=== PATIENT | female | born 1990 | race Two or more races ===

== ENCOUNTER 2021-03-10 14:35 | Outpatient (CLI) | payer OTHER | END 2021-03-10 15:00 | disposition home or self-care (01) | LOC: LAB 14:35 | PROVIDERS: ATTEND Emergency Medicine Pediatric Emergency Medicine | DX: Z20.828 Contact with and (suspected) exposure to other viral communicable diseases (principal) ==

== ENCOUNTER 2024-10-25 12:27 | Outpatient (CLI) | payer OTHER ==
[~2024-10-25 12:27] MED LIST: BUTALBIT-ACETA1 EACH PO; NEURONTIN300 MG PO
== END 2024-10-25 12:32 | disposition home or self-care (01) ==
LOC: MAMO-SONO 12:27
DX: D48.61 Neoplasm of uncertain behavior of right breast (principal); D48.62 Neoplasm of uncertain behavior of left breast; I70.0 Atherosclerosis of aorta; J45.51 Severe persistent asthma with (acute) exacerbation

== ENCOUNTER 2025-01-18 09:05 | Outpatient (CLI) | payer OTHER ==
[2025-01-18 09:41] LABS: URINE APPEARANCE Clear; URINE BILIRRUBIN Negative (NEGATIVE); URINE BLOOD Negative; URINE COLOR Yellow; URINE GLUCOSE Negative (NEGATIVE); URINE KETONE Negative (NEGATIVE); URINE LEUKOCYTE Negative; URINE NITRATE Negative; URINE PROTEIN Negative (NEGATIVE); URINE UROBILINOGEN 0.2 E.U./dl
[2025-01-18 09:42] LABS: URINE BACTERIA 687.7 uL (0.0-1933); URINE EPITHELIAL CELLS 9.1 uL (0.0-38.8); URINE RBC 20.6 uL (0.0-20.8)
[2025-01-18 09:47] LABS: URINE CAST 0.29 uL (0.0-1.40)
[2025-01-18 09:53] LABS: ob NEGATIVE (NEGATIVE)
[2025-01-18 11:02] LABS: CHOL HDL RATIO 3.1 (0-5.0)
[2025-01-18 11:08] LABS: ALBUMIN 3.7 gm/dL (3.4-5.0); BILIRUBIN TOTAL 0.29 mg/dL (0.3-1.2); CALCIUM 8.8 mg/dL (8.5-10.1); CREATININE SERUM 0.5 mg/dL (0.55-1.02); GFR 140.4; GLOBULINA 3.7 G/DL (2.4-3.5); POTASSIUM 4.69 mEq/L (3.5-5.1); TOTAL PROTEIN 7.4 gm/dL (6.4-8.2); TSH 1.97 uIU/mL (0.358-3.74)
[2025-01-18 13:16] LABS: BASO % 1.4 % (0.1-1.2); EOS # 0.23 (0.04-0.54); EOS % 4.5 % (0.7-7.0); HEMATOCRIT 27.9 % (34.1-44.9); LYMPH # 1.43 (1.18-3.74); LYMPH % 27.8 % (19.3-53.1); MEAN CORPUSCULAR HEMOGLOBIN 18.7 pg (25.6-32.2); MONO # 0.41 (0.24-0.82); NEUT % 58.1 % (34.0-71.1); PLATELET COUNT 269 K/uL (163-369); RED BLOOD COUNT 4.33 M/uL (3.93-5.22); RED CELL DISTRIBUTION WIDTH 19.1 % (11.6-14.4)
[2025-01-18 13:21] LABS: HEMOGLOBIN 8.1 g/dL (11.2-15.7)
== END 2025-01-18 09:07 | disposition home or self-care (01) ==
LOC: LAB 09:05
DX: D50.9 Iron deficiency anemia, unspecified (principal); I10 Essential (primary) hypertension; I11.9 Hypertensive heart disease without heart failure; E78.2 Mixed hyperlipidemia; Z12.11 Encounter for screening for malignant neoplasm of colon; E03.8 Other specified hypothyroidism; N39.0 Urinary tract infection, site not specified; E55.9 Vitamin D deficiency, unspecified; Z13.1 Encounter for screening for diabetes mellitus; R73.01 Impaired fasting glucose

== ENCOUNTER 2025-04-26 08:29 | Outpatient (CLI) | payer OTHER ==
[2025-04-26 09:15] LABS: BASO % 1.1 % (0.1-1.2); EOS # 0.19 (0.04-0.54); EOS % 4.3 % (0.7-7.0); LYMPH # 1.24 (1.18-3.74); LYMPH % 28.2 % (19.3-53.1); MEAN PLATELET VOLUME 9.30 fl (9.4-12.4); MONO # 0.36 (0.24-0.82); MONO % 8.2 % (4.7-12.5); NEUT # 2.55 (1.56-6.13); NEUT % 58.2 % (34.0-71.1); RED CELL DISTRIBUTION WIDTH 18.5 % (11.6-14.4)
[2025-04-27] MEDS ORDERED: [UNRECOGNIZED DRUG - OTHER] (14:42)
== END 2025-04-26 08:30 | disposition home or self-care (01) ==
LOC: LAB 08:29
PROVIDERS: ATTEND General Practice
DX: D50.9 Iron deficiency anemia, unspecified (principal); D52.0 Dietary folate deficiency anemia

== ENCOUNTER 2025-04-26 10:32 | Inpatient (IN) | payer OTHER ==
[~2025-04-26] VITALS: Ht 190.5 cm; Wt 77.1 kg
--- NOTE | 2025-04-26 11:05 | NUR ---
PACIENTE ALERTA Y ORIENTADA X3 QUIEN REFIERE QUE SE REALIZO UN CBC EL CAIO DE HOY Y EL MISMO PRESENTA HGB EN 7.3MG/DL. SE MONITOREAN S/V Y SE UBICA PACIENTE.
--- NOTE | 2025-04-26 12:48 | NUR ---
SE EDUCA PACIENTE SOBRE EL TX MEDICO Y ESTA REFIERE ENTENDER. SE CANALIZA Y WELDER APPRENTICE [facility] ADMINISTRA MEDICAMENTOS SHANTELLE ORDEN MEDICA. SE GRETTA MUESTRAS DE LABORATORIOS Y SE ENVIAN. PENDIENTE A PLACA
[2025-04-26 13:05] LABS: BASO % 1.1 % (0.1-1.2); EOS # 0.21 (0.04-0.54); EOS % 3.4 % (0.7-7.0); LYMPH # 1.67 (1.18-3.74); LYMPH % 27.4 % (19.3-53.1); MEAN PLATELET VOLUME 9.70 fl (9.4-12.4); MONO # 0.48 (0.24-0.82); MONO % 7.9 % (4.7-12.5); NEUT # 3.65 (1.56-6.13); NEUT % 60.0 % (34.0-71.1); RED CELL DISTRIBUTION WIDTH 18.5 % (11.6-14.4)
[2025-04-26 13:27] LABS: INR 1.06
[2025-04-26 13:45] LABS: ALT/SGPT 35.0 U/L (12-78); AST/SGOT 22.0 U/L (15-37); BILIRUBIN TOTAL 0.22 mg/dL (0.3-1.2); BUN CREA RATIO 23.0 (7.0-25.0); CREATININE SERUM 0.47 mg/dL (0.55-1.02); GFR 149.94; GLOBULINA 3.6 G/DL (2.4-3.5); GLUCOSE FASTING 90.0 mg/dL (65-100); OSMOLALITY SERUM 280.0 MOSM/KG (275-295)
[2025-04-26 14:08] LABS: URINE APPEARANCE Clear; URINE BILIRRUBIN Negative (NEGATIVE); URINE BLOOD Negative; URINE COLOR Yellow; URINE GLUCOSE Negative (NEGATIVE); URINE KETONE Negative (NEGATIVE); URINE LEUKOCYTE Negative; URINE NITRATE Negative; URINE PROTEIN Negative (NEGATIVE); URINE UROBILINOGEN 0.2 E.U./dl
[2025-04-26 14:09] LABS: URINE BACTERIA 1430.4 uL (0.0-1933); URINE EPITHELIAL CELLS 44.8 uL (0.0-38.8); URINE RBC 10.9 uL (0.0-20.8); URINE WBC 4.3 uL (0.0-23.2)
[2025-04-26 14:10] LABS: URINE CAST 0.14 uL (0.0-1.40)
[2025-04-26] MEDS ORDERED: 0.9 % SODIUM CHLORIDE 1,000 ML IV SCH (15:45)
[2025-04-26] MEDS ORDERED: ACETAMINOPHEN 325 MG TABLET PO PRN (15:45)
[2025-04-26] MEDS ORDERED: SOD FERRIC GLUC COMPLX/SUCROSE 125 MG in 0.9 % SODIUM CHLORIDE 100 ML IV SCH (17:00)
[2025-04-26 17:53] LABS: BILIRUBIN TOTAL 0.20 mg/dL (0.3-1.2); BILIRUBIN,CONJUGATED < 0.10 mg/dL (0.0-0.2); LDH 218 U/L (84-246); TSH 1.510 uIU/mL (0.358-3.74)
[2025-04-26 22:39] VITALS: BP 100/65; O2SAT 100
[2025-04-27 02:48] VITALS: BP 99/64; O2SAT 99
[2025-04-27 08:50] VITALS: BP 137/69
[2025-04-27 09:55] LABS: FOLIC ACID 14.08 ng/ml (4.78-20)
[2025-04-27] MEDS ORDERED: ACETAMINOPHEN 500 MG GEL..CAP PO PRN (10:00)
[2025-04-27] MEDS ORDERED: [UNRECOGNIZED DRUG - OTHER] (14:42)
[2025-04-27 20:31] VITALS: BP 110/70; O2SAT 100
[2025-04-27 20:54] LABS: BASO % 1.5 % (0.1-1.2); EOS # 0.38 (0.04-0.54); EOS % 6.4 % (0.7-7.0); LYMPH # 2.24 (1.18-3.74); LYMPH % 37.6 % (19.3-53.1); MEAN PLATELET VOLUME 9.80 fl (9.4-12.4); MONO # 0.45 (0.24-0.82); MONO % 7.6 % (4.7-12.5); NEUT # 2.79 (1.56-6.13); NEUT % 46.7 % (34.0-71.1); RED CELL DISTRIBUTION WIDTH 21.2 % (11.6-14.4)
[2025-04-27 21:15] LABS: COL EPI 118 SECONDS (82-175)
[2025-04-27 23:16] LABS: ob NEGATIVE (NEGATIVE)
[2025-04-28 02:02] VITALS: BP 98/54; O2SAT 98
[2025-04-28 09:23] VITALS: BP 103/69
[2025-04-28 12:00] VITALS: O2SAT 92
[2025-04-28] MEDS ORDERED: ABANEU-SL TABL1 EACH SL (13:19)
[2025-04-28] MEDS ORDERED: PEPCID AC20 MG PO (13:19)
[2025-04-28] MEDS ORDERED: INTEGRA F CAPS1 EAC1 PO (13:19)
== END 2025-04-28 13:50 | disposition home or self-care (01) | DRG 812 ==
LOC: ER 10:33 → SEC-K 16:03 → MEDI 16:03
PROVIDERS: General Practice; Preventive Medicine Public Health & General Preventive Medicine; Student in an Organized Health Care Education/Training Program; ADMIT Internal Medicine; ATTEND Internal Medicine
PROC: 4A12X4Z Monitoring of Cardiac Electrical Activity, External Approach (ICD-10-PCS; principal; 2025-04-26)
PROC: 30233N1 Transfusion of Nonautologous Red Blood Cells into Peripheral Vein, Percutaneous Approach (ICD-10-PCS; 2025-04-27)
PROC: BW4GZZZ Ultrasonography of Pelvic Region (ICD-10-PCS; 2025-04-27)
DX: D50.9 Iron deficiency anemia, unspecified (principal); N93.9 Abnormal uterine and vaginal bleeding, unspecified

== ENCOUNTER 2025-05-25 14:45 | Outpatient (CLI) | payer OTHER ==
[~2025-05-25 14:45] MED LIST changes: +ABANEU-SL TABL1 EACH SL; +INTEGRA F CAPS1 EAC1 PO; +PEPCID AC20 MG PO; +[UNRECOGNIZED DRUG - OTHER]
== END 2025-05-25 14:55 | disposition home or self-care (01) ==
LOC: PPH VACUNA 14:45
PROVIDERS: ATTEND Emergency Medicine Pediatric Emergency Medicine
DX: Z23 Encounter for immunization (principal)

== ENCOUNTER 2025-06-09 09:22 | Outpatient (CLI) | payer OTHER ==
[2025-06-09 12:11] LABS: URINE APPEARANCE Clear; URINE BILIRRUBIN Negative (NEGATIVE); URINE BLOOD Negative; URINE COLOR Yellow; URINE GLUCOSE Negative (NEGATIVE); URINE KETONE Negative (NEGATIVE); URINE LEUKOCYTE Trace; URINE NITRATE Negative; URINE PROTEIN Negative (NEGATIVE); URINE UROBILINOGEN 0.2 E.U./dl
[2025-06-09 12:14] LABS: URINE BACTERIA 681.5 uL (0.0-1933); URINE EPITHELIAL CELLS 16.1 uL (0.0-38.8); URINE RBC 9.8 uL (0.0-20.8); URINE WBC 2.7 uL (0.0-23.2)
[2025-06-09 12:26] LABS: URINE CAST 0.00 uL (0.0-1.40)
[2025-06-09 12:45] LABS: BASO % 1.2 % (0.1-1.2); EOS # 0.26 (0.04-0.54); EOS % 5.2 % (0.7-7.0); LYMPH # 1.28 (1.18-3.74); LYMPH % 25.8 % (19.3-53.1); MEAN PLATELET VOLUME 10.20 fl (9.4-12.4); MONO # 0.46 (0.24-0.82); MONO % 9.3 % (4.7-12.5); NEUT # 2.89 (1.56-6.13); NEUT % 58.3 % (34.0-71.1)
[2025-06-09 12:46] LABS: RED CELL DISTRIBUTION WIDTH 25.3 % (11.6-14.4)
[2025-06-11 09:04] LABS: ALT/SGPT 52 U/L (12-78); AST/SGOT 21 U/L (15-37); BILIRUBIN TOTAL 0.19 mg/dL (0.3-1.2); BUN CREA RATIO 19 (7.0-25.0); CHOL HDL RATIO 3.7 (0-5.0); CREATININE SERUM 0.53 mg/dL (0.55-1.02); GFR 130.53; GLOBULINA 3.5 G/DL (2.4-3.5); GLUCOSE FASTING 75 mg/dL (65-100); HDL 50 mg/dl (40-60); LDL 114 mg/dl (0-130); OSMOLALITY SERUM 277 MOSM/KG (275-295); TSH 1.150 uIU/mL (0.358-3.74); VLDL 19 (0-39)
[2025-06-11 09:26] LABS: HCG QUANTITATIVE < 1 mUI/mL (1-3); T4 FREE 0.92 NG/ML (0.76-1.46)
[2025-06-12 08:07] LABS: hav igm Negative (Negative); hep b c Negative (Negative); hep b s ag Negative (Negative)
[2025-06-12 10:10] LABS: CA 125 19.3 U/mL (0.0-38.1); ESTRADIOL SERUM 51.1 pg/mL (.); PROGESTERONA 2.6 ng/mL (.); PROLACTIN 8.2 ng/mL (4.8-33.4)
== END 2025-06-09 09:28 | disposition home or self-care (01) ==
LOC: LAB 09:22
DX: D64.9 Anemia, unspecified (principal); Z12.11 Encounter for screening for malignant neoplasm of colon; E03.8 Other specified hypothyroidism; N95.1 Menopausal and female climacteric states; I10 Essential (primary) hypertension; C51.9 Malignant neoplasm of vulva, unspecified; N30.00 Acute cystitis without hematuria; A64 Unspecified sexually transmitted disease; N39.0 Urinary tract infection, site not specified; R97.8 Other abnormal tumor markers; R79.89 Other specified abnormal findings of blood chemistry; E55.9 Vitamin D deficiency, unspecified; A60.9 Anogenital herpesviral infection, unspecified

== ENCOUNTER 2025-07-20 09:35 | Outpatient (CLI) | payer OTHER | END 2025-07-20 09:43 | disposition home or self-care (01) | LOC: SONOGRAMA 09:35 | PROVIDERS: ATTEND Anesthesiology Pain Medicine | DX: Z31.41 Encounter for fertility testing (principal) ==